=== PATIENT | male | born 1950 | race Two or more races ===

== ENCOUNTER 2024-04-05 14:07 | Emergency (ER) | payer SELFPAY ==
--- NOTE | 2024-04-05 14:20 | ED.SKABFB ---
HPI - Skin/Abscess/Foreign Bdy General Chief complaint: Skin/Abscess/Foreign Body Stated complaint: Left Leg/Skin Sore Time Seen by Provider: 04/05/24 14:20 Source: patient Mode of arrival: ambulatory Limitations: no limitations History of Present Illness HPI narrative: 73 y/o male presented for c/o redness and swelling to a wound on the left lower leg worsening over the past 5 days. States he scratched it on a tree branch. Yesterday they started cleaning the site with wound spray and neosporin. Endorses mild drainage. Related Data Allergies Allergy/AdvReac Type Severity Reaction Status Date / Time No Known Allergies Allergy Verified 04/05/24 14:20 Review of Systems Review of Systems: CONSTITUTIONAL: Denies body aches, fever, chills, or sweats. EYES: Denies visual changes, redness, or discharge. ENT: Denies rhinorrhea, congestion CARDIOVASCULAR: Denies chest pain, palpitations, or edema. RESPIRATORY: Denies cough or dyspnea. GASTROINTESTINAL: Denies abdominal pain, nausea, vomiting, or diarrhea. SKIN: Reports wound and swelling to the left lower leg MUSCULOSKELETAL: Denies back pain, joint pain, or myalgia. NEUROLOGIC: Denies headache, numbness, tingling, or weakness. PMFSH Comments At time of signature, I have reviewed and agree with nursing past medical, surgical, social and family history unless otherwise noted. Please see nursing chart for further information. There is no relevant family history pertinent to the presenting complaint Exam Narrative: GENERAL: Well-appearing ENT: Mucous membranes moist. Oropharynx without edema, erythema or lesions. NECK: Supple. No lymphadenopathy CHEST: Clear to auscultation. HEART: Regular rate and rhythm. SKIN: Warm, dry. Left hammond with 1cm open wound, yellow slough at center, surrounding erythema approx 4cm to anterior lower leg; erythema not circumferential. Normal turgor. EXT: LLE 2+ pitting edema to lower leg and ankle; pedal pulses strong and equal bilaterally, Reports tender to medial malleolus. No erythema or bruising. No calf tenderness. negative homans sign. NEURO: Alert and oriented x3. Course Course Emergency Course: Patient is aware of diagnosis, understands and agrees to treatment plan. Anticipatory guidance given. Patient agrees to follow-up as directed and is aware of reasons to seek care at the emergency department. Portions of this record may have been created with voice recognition software Level of Care: Express Care Visit Vital Signs Vital signs: Vital Signs Temperature 98.4 F 04/05/24 14:21 Pulse Rate 92 04/05/24 14:21 Respiratory Rate 16 04/05/24 14:21 Blood Pressure 137/91 H 04/05/24 14:21 Pulse Oximetry 96 04/05/24 14:21 Oxygen Delivery Room Air 04/05/24 14:21 Temperature 98.4 F 04/05/24 14:21 Pulse Rate 92 04/05/24 14:21 Respiratory Rate 16 04/05/24 14:21 Blood Pressure 137/91 H 04/05/24 14:21 Pulse Oximetry 96 04/05/24 14:21 Oxygen Delivery Room Air 04/05/24 14:21 Reviewed MDM - Skin/Abscess/Foreign Bdy MDM Narrative Medical decision making narrative: Discussed physical exam findings c/w cellulitis surrounding the open wound, provided wound care instructions and Rx abx. Wound/erythema marked with skin marker. VINH applied to lower leg for swelling. Advised supportive measures and signs/symptoms to go to the ER. Pt is appropriate for outpt treatment and f/u. Patient is Japanese speaking, requests his [id number] translate. Differential Diagnosis Differential diagnosis: Likely abscess of skin or subcutaneous tissue, urticaria, herpes zoster, cellulitis and contact dermatitis Discharge Plan Discharge Clinical Impression: Cellulitis, Open leg wound Patient Disposition: Home, Self-Care Condition: Stable Instructions: Antibiotic Form, Cellulitis (ED), Acute Wounds (ED) Additional Instructions: Keep the area clean and dry - cleanse with warm water and mild s
[2024-04-05 14:21] VITALS: BP 137/91; PULSE 92; RESP 16; TEMP 36.9; O2SAT 96
== END 2024-04-05 14:52 | disposition home or self-care (01) ==
PROVIDERS: Emergency Provider Nurse Practitioner Family
DX: S81.802A Unspecified open wound, left lower leg, initial encounter (principal); L03.116 Cellulitis of left lower limb; W22.8XXA Striking against or struck by other objects, initial encounter
CPT/HCPCS: 99203; G0463